=== PATIENT | female | born 1990 | race Caucasian/White ===

== ENCOUNTER 2023-12-05 05:38 | Inpatient (IN) ==
--- NOTE | 2023-11-26 13:01 | Anesthesiology Consultation ---
Date of Service November 26, 2023 Assessment & Plan (1) Encounter for pre-operative examination: Infectious disease screening: Per assessment on 11/26/23: No known infectious disease contacts or current infectious disease symptoms. No noted recent Covid positive test result. Chart Review Chart Review: clerk entry level initiated History Surgery Operation Date: 12/05/23 07:30 Proposed Procedures p Section (Delivery of Baby Through Abdominal Incision) in - Kanwal Bhardwaj MD Height/Weight Height: 5 ft 1 in Weight: 104.326 kg Allergies Allergy/AdvReac Type Severity Reaction Status Date / Time Penicillins Allergy Intermediate Hives Verified 11/26/23 12:09 Medications Home Medications Medication Instructions Recorded Confirmed Last Taken 1 tab PO QPM 11/26/23 11/26/23 Unknown albuterol sulfate 90 mcg/actuation 1 inh inhalation QID PRN sob 11/26/23 11/26/23 Unknown aerosol inhaler budesonide-formoterol HFA 80 1 inh inhalation BID PRN sob 11/26/23 11/26/23 Unknown mcg-4.5 mcg/actuation aerosol inhaler (Symbicort) cholecalciferol (vitamin D3) 25 25 mcg PO QPM 11/26/23 11/26/23 Unknown mcg (1,000 unit) capsule (Vitamin D3) collagen 1 dose PO QPM 11/26/23 11/26/23 Unknown fexofenadine 60 mg tablet 60 mg PO QPM 11/26/23 11/26/23 Unknown folic acid 1 mg tablet 1 mg PO QPM 11/26/23 11/26/23 Unknown insulin glargine 100 unit/mL 6 unit subcut PM 11/26/23 11/26/23 Unknown subcutaneous solution (Lantus U-100 Insulin) insulin lispro 100 unit/mL 4 unit subcut QAM 11/26/23 11/26/23 Unknown subcutaneous pen magnesium 200 mg tablet 200 mg PO QPM 11/26/23 11/26/23 Unknown pantoprazole 20 mg tablet,delayed 20 mg PO QAM 11/26/23 11/26/23 Unknown release (Protonix) sertraline 25 mg tablet (Zoloft) 25 mg PO QPM 11/26/23 11/26/23 Unknown Past Medical History Medical History Acid reflux Asthma 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 Depression with anxiety Endometriosis GERD (gastroesophageal reflux disease) Gestational diabetes History of migraine IBS (irritable bowel syndrome) MTHFR gene mutation Narcolepsy Seasonal allergies Spasm of back muscles Past Family History Family History Mother Diabetes Denies family history of Ovarian cancer Breast cancer Colorectal cancer Past Surgical History Surgical History S/P appendectomy S/P section S/P cholecystectomy S/P colonoscopy S/P laparoscopy S/P tonsillectomy and adenoidectomy S/P wisdom tooth extraction Social History Smoking Status: Former smoker Do You Dip or Chew Tobacco: No Smoking End Date: 2019 Hx Alcohol Use: No Hx Substance Use: No substance use type: does not use
[2023-12-05] MEDS: LACTATED RINGER'S 1,000 ML IV SCH (06:00)
[2023-12-05 06:25] LABS: Basophils # (auto) 0.04 K/uL (0.00-0.20); Basophils % (auto) 0.3 %; Eosinophils # (auto) 0.13 K/uL (0.00-0.50); Eosinophils % (auto) 1.1 %; Hematocrit (blood only) 37.2 % (37.0-47.0); Hemoglobin 12.1 g/dl (12.0-16.0); Immature Granulocytes # (auto) 0.06 K/uL (0.01-0.20); Immature Granulocytes % (auto) 0.5 %; Lymphocytes # (auto) 2.66 K/uL (1.20-3.40); Lymphocytes % (auto) 22.4 %; Mean Corpuscular Hemoglobin 29.2 pg (25.0-34.0); Mean Corpuscular Hgb Conc 32.5 g/dL (32.0-36.0); Mean Corpuscular Volume 89.6 fL (80.0-100.0); Mean Platelet Volume 11.3 fL (9.4-12.4); Monocytes # (auto) 0.76 K/uL (0.11-0.59); Monocytes % (auto) 6.4 %; Neutrophils # (auto) 8.23 K/uL (1.40-6.50); Neutrophils % (auto) 69.3 %; Platelet Count 205 K/uL (130-400); RDW Coefficient of Variation 14.8 % (11.5-14.5); RDW Standard Deviation 47.8 fL (36.4-46.3); Red Blood Count 4.15 M/uL (4.20-5.40); White Blood Count 11.88 K/ul (4.8-10.8)
[2023-12-05] MEDS ORDERED: SODIUM CHLORIDE 0.9% 250 ML IV PRN (06:32)
[2023-12-05] MEDS ORDERED: fentaNYL citrate PF 100 MCG/2 ML VIAL ONE (06:42)
[2023-12-05] MEDS ORDERED: OXYTOCIN 10 UNITS/ML VIAL ONE (06:42)
[2023-12-05] MEDS ORDERED: MoRPHine SULFATE PF 1 MG/ML 10 ML AMP/VIAL ONE (06:42)
[2023-12-05] MEDS ORDERED: ONDANSETRON INJ 2 MG/ML 2 ML VIAL ONE (06:42)
[2023-12-05] MEDS ORDERED: PHENYLEPHRINE 100MCG/ML 10ML SYR IV ONE (06:42)
--- NOTE | 2023-12-05 07:16 | History & Physical Bridge Note ---
Date of Service December 05, 2023 History & Physical Bridge Note I have examined the patient, reviewed the History & Physical and in the interval since the performance of the History & Physical I have noted the following changes of clinical significance: no changes noted
[2023-12-05] MEDS: CITRIC ACID/SODIUM CITRATE 15 ML UDC PO SCH (07:31)
[2023-12-05] MEDS: ceFAZolin 2000MG 2,000 MG/15 ML SYR IV SCH (07:31)
[2023-12-05] MEDS ORDERED: MoRPHine SULFATE PF 1 MG/ML 10 ML AMP/VIAL INT SPINAL ONE (08:02)
[2023-12-05] MEDS ORDERED: LACTATED RINGER'S 500 ML IV PRN (08:02)
[2023-12-05] MEDS ORDERED: NALOXONE HCL 0.08 MG in SYRINGE 1.8 ML IV PRN (08:02)
[2023-12-05] MEDS ORDERED: NALBUPHINE HCL 5 MG in SYRINGE 0 ML IV PRN (08:02)
[2023-12-05] MEDS ORDERED: NALOXONE HCL 0.4 MG/1 ML VIAL/CARP IV PRN (08:02)
[2023-12-05] MEDS ORDERED: ePHEDrine sulfate 50 MG/ML AMP IV PRN (08:02)
[2023-12-05] MEDS ORDERED: ONDANSETRON INJ 2 MG/ML 2 ML VIAL IV PRN (08:02)
[2023-12-05] MEDS ORDERED: HYDROmorphone INJ 0.5 MG/0.5 ML SYR IV PRN (08:02)
[2023-12-05] MEDS ORDERED: NALOXONE HCL 1 MG in SODIUM CHLORIDE 0.9% 1,000 ML IV PRN (08:02)
[2023-12-05] MEDS ORDERED: PROMETHAZINE HCL 6.25 MG in SODIUM CHLORIDE 0.9% 50 ML IV PRN (08:02)
[2023-12-05] MEDS ORDERED: NO NARCOTICS OR SEDATIVES SCH (08:15)
[2023-12-05] MEDS ORDERED: SODIUM CHLORIDE 0.9% 1,000 ML IV SCH (08:15)
[2023-12-05] MEDS ORDERED: DC INTRASPINAL MORPHINE SCH (08:15)
--- NOTE | 2023-12-05 08:58 | Operative Report ---
PG Post Operative Report Pre & Post Diagnosis Operation Date: 12/05/23 07:30 Pre-Op Diagnosis: Previous C/S I identified the patient and participated in the time-out.: Yes Procedure Operation Date: 12/05/23 07:30 Actual Procedures Repeat Low Transverse Section Surgeon Kanwal Bhardwaj MD Entry Level Sales Associate Eliud Pope MD Estimated Blood Loss 500 Findings Consistent with Post-Op Diagnosis Specimens cord blood, placenta Anesthesia Type Spinal Complications none Disposition Accompanied Patient To Recovery: Yes Disposition: L&D Description of Procedure The patient was placed operating table in the supine position with a leftward tilt. She was prepped and draped in standard sterile fashion. The anesthetic was tested and found to be adequate. A time-out was held, identifying correct patient, procedure, positioning and preoperative antibiotics. There were no concerns. A Pfannenstiel skin incision was made with a knife and taken down to the underlying layer of fascia. The fascia was incised in the midline with the knife and taken out laterally with scissors. The superior edge of the fascial incision was grasped, elevated and dissected off the underlying rectus both superiorly and inferiorly. The muscles were bluntly in the midline. The peritoneum was entered bluntly. The incision was then stretched. The bladder retractor was placed. The vesicouterine peritoneum was identified, entered with scissors and taken out laterally with scissors. The bladder flap was created digitally. Lew retractor was placed. A hysterotomy incision was created transversely in the lower uterine segment, final entry being accomplished in a blunt manner with the bus and rail operator's fingers. Clear amniotic fluid was encountered. The bus and rail operator's hand was used to elevate the head to the hysterotomy. The head was delivered using mild fundal pressure, a Kiwi Cup vacuum, and the shoulders and body followed without difficulty. The cord was clamped and cut and the infant was then handed off to the awaiting allied health teacher. Cord blood was obtained. The placenta was Manually extracted. The uterus was cleared of all clot and debris with moistened laparotomy sponges. The hysterotomy incision was repaired in two layers, the first in a running locked layer, the second in an imbricating layer. The ovaries and tubes were not well seen due to uterus remaining in- situ. The gutters were cleared of clot and debris. A final inspection of the hysterotomy revealed good hemostasis. The rectus muscles were allowed to reapproximate naturally. The fascia was then reapproximated with 1 Vicryl in a running nonlocked manner. The fascia was examined and found to be free of defect following closure. The subcutaneous tissue was copiously irrigated and reapproximated with 0-chromic, then the skin edges were closed with 4-0 monocryl in a subcuticular fashion. A dermabond dressing was applied. The delacruz was found to be draining clear yellow urine at completion of the procedure. I attest to the content of the Intraoperative Record and any orders documented therein. Any exceptions are noted below. I attest to the content of the Intraoperative Record and any orders documented therein. Any exceptions are noted below.
[2023-12-05] MEDS: KETOROLAC 30 MG/ML VIAL IV PRN (10:40)
[2023-12-05] MEDS: diphenhydrAMINE 50 MG/ML VIAL IV PRN (10:46)
--- NOTE | 2023-12-05 10:49 | Anesthesiology Progress Note ---
Date of Service December 05, 2023 Anesthesia Post Procedure Vital Signs Vital Signs: Temp Pulse Resp BP Pulse Ox O2 Del Method 12/05/23 10:46 77 98 12/05/23 10:41 71 99 12/05/23 10:36 81 98 12/05/23 10:33 74 93 12/05/23 10:31 85 99 12/05/23 10:29 72 143/60 H 12/05/23 10:26 81 99 12/05/23 10:21 84 96 12/05/23 10:16 83 99 12/05/23 10:11 72 99 12/05/23 10:06 86 99 12/05/23 10:01 84 99 12/05/23 09:58 88 114/62 12/05/23 09:56 71 117/53 L 95 12/05/23 09:51 74 100 12/05/23 09:49 79 94 12/05/23 09:46 83 121/70 98 12/05/23 09:45 36.6 C 74 16 100 12/05/23 09:41 83 100 12/05/23 09:40 88 94 12/05/23 09:36 83 117/59 L 99 12/05/23 09:35 36.6 C 83 16 121/70 98 12/05/23 09:31 87 100 12/05/23 09:26 100 12/05/23 09:26 71 12/05/23 09:26 75 114/57 L 12/05/23 09:25 36.5 C 83 18 100 12/05/23 09:21 84 98 12/05/23 09:17 83 109/54 L 12/05/23 09:16 88 99 12/05/23 09:15 36.5 C 88 16 94 12/05/23 09:12 83 108/53 L 12/05/23 09:11 77 100 12/05/23 09:09 76 104/46 L 12/05/23 09:06 94 H 100 12/05/23 09:05 36.6 C 83 16 117/59 L 99 12/05/23 09:05 99 H 92 12/05/23 09:01 103 H 99 12/05/23 08:56 94 H 100 12/05/23 08:55 36.7 C 18 12/05/23 08:52 78 102/50 L 12/05/23 08:51 88 100 12/05/23 07:29 Room Air 12/05/23 07:18 76 127/60 12/05/23 07:11 36.6 C 18 12/05/23 06:03 91 H 129/66 12/05/23 05:56 36.7 C 20 Pain Intensity Lower Abdomen: Pain Intensity: 1 Transfer of Care Handoff Completed per policy Notes Mental Status: alert / awake / arousable and participated in evaluation Patient Amnestic to Procedure: No Nausea / Vomiting: adequately controlled Pain: adequately controlled Airway Patency, RR, SpO2: stable & adequate BP & HR: stable & adequate Hydration State: stable & adequate Neuraxial Anesthesia: was administered and sensory block is resolving Anesthetic Complications: no major complications apparent and Pt Satisfied with anesthetic care
[2023-12-05] MEDS ORDERED: DIPHTHER/TETAN/PERTUS Vaccine (Tdap, Adol/Adult) 0.5mL IM ONE (10:57)
[2023-12-05] MEDS ORDERED: BENZOCAINE 20% SPRY 85 APPLN/85 GM CAN EXT PRN (10:57)
[2023-12-05] MEDS ORDERED: LACTATED RINGER'S 1,000 ML IV SCH (10:57)
[2023-12-05] MEDS ORDERED: HYDROCORTISONE ACETATE 25 MG SUPP PR PRN (10:57)
[2023-12-05] MEDS ORDERED: ALBUTEROL HFA 8 GM INHALER INH PRN (10:57)
[2023-12-05] MEDS ORDERED: FLUTICASONE/VILANTEROL 100/25MCG 14 PUFFS/INHALER INH PRN (10:57)
[2023-12-05] MEDS: OXYTOCIN 20 UNITS/LR 1,002 ML IV SCH (11:25)
[2023-12-05] MEDS: SIMETHICONE 80 MG CHEW PO SCH (18:02)
[2023-12-05] MEDS: PANTOprazole 40 MG TAB PO SCH (18:05)
[2023-12-05] MEDS ORDERED: NON-FORMULARY MEDICATION (Prenatal 1 TAB) PO SCH (21:00)
[2023-12-05] MEDS: DOCUSATE SODIUM 100 MG CAP PO SCH (21:24)
[2023-12-05] MEDS: FEXOFENADINE 60 MG TAB PO SCH (21:25)
[2023-12-05] MEDS: SERTRALINE HCL 50 MG TABLET PO SCH (21:25)
[2023-12-05] MEDS: FOLIC ACID 1 MG TAB PO SCH (21:25)
[2023-12-06] MEDS ORDERED: KETOROLAC 30 MG/ML VIAL IV PRN (02:03)
[2023-12-06] MEDS ORDERED: MEPERIDINE HCL 50 MG/ML CARP IV PRN (02:03)
[2023-12-06] MEDS ORDERED: ZOLPIDEM TARTRATE 5 MG TAB PO PRN (02:03)
[2023-12-06] MEDS ORDERED: diphenhydrAMINE 50 MG/ML VIAL IV PRN (02:03)
[2023-12-06] MEDS ORDERED: diphenhydrAMINE Capsule 25 MG CAP PO PRN (02:03)
[2023-12-06] MEDS ORDERED: ONDANSETRON INJ 2 MG/ML 2 ML VIAL IV PRN (02:03)
[2023-12-06 06:56] LABS: Basophils # (auto) 0.03 K/uL (0.00-0.20); Basophils % (auto) 0.3 %; Eosinophils # (auto) 0.22 K/uL (0.00-0.50); Eosinophils % (auto) 1.9 %; Hematocrit (blood only) 32.9 % (37.0-47.0); Hemoglobin 10.5 g/dl (12.0-16.0); Immature Granulocytes # (auto) 0.05 K/uL (0.01-0.20); Immature Granulocytes % (auto) 0.4 %; Lymphocytes # (auto) 2.17 K/uL (1.20-3.40); Lymphocytes % (auto) 19.2 %; Mean Corpuscular Hemoglobin 28.7 pg (25.0-34.0); Mean Corpuscular Hgb Conc 31.9 g/dL (32.0-36.0); Mean Corpuscular Volume 89.9 fL (80.0-100.0); Mean Platelet Volume 11.2 fL (9.4-12.4); Monocytes # (auto) 0.75 K/uL (0.11-0.59); Monocytes % (auto) 6.6 %; Neutrophils # (auto) 8.11 K/uL (1.40-6.50); Neutrophils % (auto) 71.6 %; Platelet Count 153 K/uL (130-400); RDW Coefficient of Variation 14.6 % (11.5-14.5); RDW Standard Deviation 47.7 fL (36.4-46.3); Red Blood Count 3.66 M/uL (4.20-5.40); White Blood Count 11.33 K/ul (4.8-10.8)
--- NOTE | 2023-12-06 08:32 | Obstetrical Progress Note ---
Date of Service <Zora Pope MD - Last Filed: 12/06/23 08:32> December 06, 2023 Assessment & Plan <Zora Pope MD - Last Filed: 12/06/23 08:32> (1) Encounter for assessment: Plan Patient with the above mentioned history and findings was evaluated at bedside and found awake, alert, oriented in all spheres, afebrile, and in no acute distress. Vital signs showed no fever and blood pressures remained stable. Her blood type is AB positive and today's hemoglobin is adequate at 10.5 g/dL. Serologies are negative for GBS and patient is Rubella immune. Overall, patient is doing well clinically. Therefore, will encourage ambulation as tolerated and will resume regular diet. Indwelling Barth will be removed. Continue routine pp course. All questions were answered. <Rafa Howard MD - Last Filed: 12/06/23 08:34> (1) Encounter for assessment: Subjective <Zora Pope MD - Last Filed: 12/06/23 08:32> Kaylen is a 33 y/o female who is POD #1 following rLTCS at 39+ weeks. Constitutional: no fever, no chills or no sweats Denies shortness of breath or difficulty breathing. Cardiovascular: no chest pain or no palpitations Breast: no breast pain Genitourinary (female): no dysuria Neurologic: no headache(s) Denies changes in vision. Results & Data <Zora Pope MD - Last Filed: 12/06/23 08:32> Vital Signs (Past 12 Hours) Vital Signs Temp Pulse Resp BP Pulse Ox O2 Del Method 12/06/23 04:15 36.8 C 94 H 18 130/71 98 Room Air 12/06/23 02:00 18 97 12/06/23 01:30 20 99 12/06/23 00:35 18 97 12/05/23 23:10 20 98 12/05/23 23:10 36.8 C 103 H 18 106/66 98 Room Air 12/05/23 22:39 20 98 12/05/23 21:30 18 98 12/05/23 21:30 36.8 C 105 H 18 116/72 98 Room Air Supervising Physician <Rafa Howard MD - Last Filed: 12/06/23 08:34> Co-Signing Physician Notes Patient seen with resident and agree with the above findings and plan. Routine care
[2023-12-06] MEDS: FERROUS SULFATE 325 MG TAB PO SCH (08:56)
[2023-12-06] MEDS: oxyCODONE/ACETAMINOPHEN 5mg/325mg TAB PO PRN (08:56)
[2023-12-06] MEDS: PRENATAL VITAMIN 1 TAB PO SCH (08:56)
[2023-12-06] MEDS: IBUPROFEN 600 MG TAB PO PRN (08:57)
[2023-12-06] MEDS: MAGNESIUM HYDROXIDE SUSP 30 ML UDC PO PRN (15:44)
[2023-12-06] MEDS: SENNA 8.6 MG TAB PO PRN (15:45)
[2023-12-06] MEDS ORDERED: SODIUM CHLORIDE 0.65% NA SOLN 45 ML (OCEAN) ONE (17:05)
[2023-12-06] MEDS ORDERED: SODIUM CHLORIDE 0.65% NA SOLN 45 ML (OCEAN) PRN (17:14)
[2023-12-06] MEDS ORDERED: Nursing to Pharmacy Communication SCH (17:15)
[2023-12-06] MEDS: bisacodyL 5 MG TABEC PO SCH (19:38)
--- NOTE | 2023-12-07 06:50 | Obstetrical Progress Note ---
Date of Service December 07, 2023 Assessment & Plan (1) Encounter for assessment: Recovering normally. Wants to stay until tomorrow. Having some sinus symptoms, had URI since last weekend but bothered now. Discussed pros/cons of abx, patient declines for now. Subjective Ambulation: ambulating normally Voiding: no voiding problems Passing Gas:: Yes Diet Tolerance:: regular diet Lochia:: Small Feeding Type:: breast feeding Physical Exam Constitutional WD/WN, vitals as above Eyes PERRL, conjunctivae normal, anicteric sclerae Neck normal visual inspection Respiratory normal respiratory effort and able to speak in complete sentences; no respiratory distress and no labored breathing Cardiovascular Rate/Rhythm: regular rate and regular rhythm Extremities: no edema Chest (Breasts) Chest: normal inspection of chest Gastrointestinal (Abdomen) Inspection/Auscultation: abdomen normal to inspection Soft, postgravid Psychiatric A+Ox3, euthymic affect Genitourinary OB Exam Abdomen: + fundal height Fundus: + firm and + relation to umbilicus (fundus just below umbilicus); not tender Results & Data Vital Signs (Past 12 Hours) Vital Signs Temp Pulse Resp BP Pulse Ox O2 Del Method 12/06/23 23:45 97.7 F 81 20 109/72 98 Room Air 12/06/23 19:25 98.2 F 102 H 18 123/65 98 Room Air
[2023-12-07 06:52] LABS: Hematocrit (blood only) 33.2 % (37.0-47.0); Hemoglobin 10.7 g/dl (12.0-16.0)
[2023-12-07] MEDS ORDERED: bisacodyL 10 MG SUPP PR PRN (08:34)
--- NOTE | 2023-12-08 04:41 | Obstetrical Progress Note ---
Date of Service December 08, 2023 Assessment & Plan (1) Encounter for assessment: Plan 33 y/o POD#3 Eating well, voiding well, ambulating well Vitals reviewed, WNL Pain well controlled with percocet and motrin Routine post op care - OOB, ambulation, diet progression as tolerated Will have 6 week follow up with Dr. Bhardwaj Subjective Ambulation: ambulating normally Voiding: no voiding problems Passing Gas:: Yes Diet Tolerance:: regular diet Lochia:: Small Feeding Type:: breast feeding Pain well controlled with scheduled percocet and motrin Review of Systems -Denies fever or chills -Denies dyspnea, chest pain, or palpitations -Denies breast pain -Denies dysuria -Notes mild MATTHEWS but denies sustained changes in vision Physical Exam General: Alert and oriented. No acute distress Cardiac: Regular rate and rhythm, no murmurs appreciated Respiratory: Lungs clear to auscultation bilaterally, No increased work of breathing Abdominal: Soft, non-tender, non-distended. Bowel sounds present. Uterus: Uterine fundus firm, palpable below umbilicus Extremities: No lower extremity edema, calves non-tender bilaterally Results & Data Vital Signs (Past 12 Hours) Vital Signs Temp Pulse Resp BP 12/08/23 00:06 37.0 C 99 H 18 115/72 12/07/23 19:57 36.9 C 89 18 124/73
--- NOTE | 2023-12-11 11:00 | Discharge Summary ---
Date of Service December 11, 2023 Discharge Data Consultations 12/05/23 05:38 Consult Anesthesiology Stat Procedures Performed Operation Date: 12/05/23 07:30 Actual Procedures p Section in LD with result of Live Female child at 0813 - Kanwal Bhardwaj MD Hospital Course (1) Encounter for assessment: Plan 33 y/o POD#3 Eating well, voiding well, ambulating well Vitals reviewed, WNL Pain well controlled with percocet and motrin Routine post op care - OOB, ambulation, diet progression as tolerated Will have 6 week follow up with Dr. Bhardwaj Coding Level of Care Code None Diagnoses Encounter for assessment Z39.2
== END 2023-12-08 14:45 | disposition home or self-care (01) | DRG 788 ==
LOC: 4S1 05:38 → EDSTATUS 07:30 → 4E2 11:31
DX: Z79.899 Other long term (current) drug therapy; Z79.4 Long term (current) use of insulin; O34.211 Maternal care for low transverse scar from previous cesarean delivery; Z88.0 Allergy status to penicillin; Z87.891 Personal history of nicotine dependence

== ENCOUNTER 2025-06-20 05:24 | Inpatient (IN) ==
--- NOTE | 2025-06-16 10:28 | Anesthesiology Consultation ---
Date of Service June 16, 2025 Assessment & Plan (1) Encounter for pre-operative examination: - Per environmental specialist on 06/16/25: No known infectious disease contacts, current infectious disease symptoms in past 10 days or COVID positive test result in the past 30 days. Chart Review Chart Review: data entry initiated History Surgery Operation Date: 06/20/25 07:30 Proposed Procedures p Section (Delivery of Baby Through Abdominal Incision) - Kanwal Bhardwaj MD Height/Weight Height: 5 ft 1 in Weight: 97.522 kg Allergies Allergy/AdvReac Type Severity Reaction Status Date / Time Penicillins Allergy Unknown Hives Verified 06/16/25 09:43 Medications Home Medications Medication Instructions Recorded Confirmed Last Taken albuterol sulfate 90 mcg/actuation 1 inh inhalation UD PRN excercise 11/26/23 06/16/25 Unknown aerosol inhaler induced asthma budesonide-formoterol HFA 80 1 inh inhalation BID PRN illness 11/26/23 06/16/25 Unknown mcg-4.5 mcg/actuation aerosol inhaler (Symbicort) cholecalciferol (vitamin D3) 25 25 mcg PO QPM 11/26/23 06/16/25 Unknown mcg (1,000 unit) capsule (Vitamin D3) fexofenadine 60 mg tablet 0 mg PO HS 11/26/23 06/16/25 08/03/24 magnesium 200 mg tablet 200 mg PO QPM 11/26/23 06/16/25 Unknown pantoprazole 20 mg tablet,delayed 20 mg PO QAM 11/26/23 06/16/25 Unknown release (Protonix) sertraline 25 mg tablet (Zoloft) 25 mg PO QPM 11/26/23 06/16/25 08/03/24 vit no.95-ferrous 1 tab PO DAILY 07/29/24 06/16/25 Unknown fumarate 28 mg-folic acid 800 mcg tablet () acetone (urine) test (Ketone Urine #50 ea 12/24/24 06/08/25 Unknown Test strips) ondansetron 4 mg disintegrating 4 mg PO Q6H PRN nausea and 02/07/25 06/16/25 Unknown tablet vomiting #20 tabs Accu-Chek Guide test strips (blood #400 ea 04/11/25 06/08/25 Unknown sugar diagnostic) Accu-Chek Softclix Lancets #400 ea 04/11/25 06/08/25 Unknown (lancets) blood-glucose meter (Accu-Chek #1 ea 04/11/25 06/08/25 Unknown Guide Glucose Meter) cyclobenzaprine 5 mg tablet 5 mg PO TID PRN muscle spasm #15 05/30/25 06/16/25 Unknown tabs acetaminophen 325 mg tablet 325 mg PO QID PRN neck/shoulder 06/16/25 06/16/25 Unknown pain Past Medical History Medical History Acid reflux controlled Anxiety and depression at current controlled with med and counseling. 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 History of COVID-19 (2020) resolved IBS (irritable bowel syndrome) Migraines on occ/not as many recently/has no meds for. MTHFR gene mutation hx [facility] genealogist visit - per pt she was told she doesn't have the type of gene that is a concerning one. Narcolepsy Neck pain on left side depression hx of- unknown if official dx. At current controlled with med and counseling. Seasonal allergies Spasm of back muscles sometimes Past Family History Family History Mother Diabetes Uncle Family history of pulmonary embolism Father Prostate cancer Other MTHFR gene mutation Denies family history of Ovarian cancer Breast cancer Colorectal cancer Past Surgical History Surgical History History of x2: most recent 12/05/23 S/P appendectomy S/P cholecystectomy S/P colonoscopy S/P laparoscopy S/P medial patellofemoral ligament reconstruction (08/04/24) left S/P tonsillectomy and adenoidectomy S/P wisdom tooth extraction Social History Smoking Status: Former smoker Do You Dip or Chew Tobacco: No Smoking End Date: quit 07/2020 Hx Alcohol Use: No Hx Substance Use: No substance use type: does not use
[2025-06-20 05:58] LABS: Hematocrit (blood only) 38.9 % (37.0-47.0); Hemoglobin 12.3 g/dl (12.0-16.0); Mean Corpuscular Hemoglobin 27.6 pg (25.0-34.0); Mean Corpuscular Volume 87.2 fL (80.0-100.0); Platelet Count 211 K/uL (130-400); RDW Standard Deviation 45.5 fL (36.4-46.3); Red Blood Count 4.46 M/uL (4.20-5.40); White Blood Count 10.72 K/ul (4.8-10.8)
[2025-06-20] MEDS: ACETAMINOPHEN 500 MG TAB PO SCH (06:09)
[2025-06-20] MEDS: LACTATED RINGER'S 1,000 ML IV SCH ×2 (06:09→10:23)
[2025-06-20] MEDS ORDERED: SODIUM CHLORIDE 0.9% 100 ML IV PRN (06:26)
[2025-06-20] MEDS ORDERED: LACTATED RINGER'S 500 ML IV PRN (07:21)
[2025-06-20] MEDS ORDERED: NALOXONE HCL 0.4 MG/1 ML VIAL/CARP IV PRN (07:21)
[2025-06-20] MEDS ORDERED: ONDANSETRON INJ 2 MG/ML 2 ML VIAL IV PRN (07:21)
[2025-06-20] MEDS ORDERED: NALOXONE HCL 0.08 MG in SYRINGE 1.8 ML IV PRN (07:21)
[2025-06-20] MEDS ORDERED: diphenhydrAMINE 50 MG/ML VIAL IV PRN (07:21)
[2025-06-20] MEDS ORDERED: NALOXONE HCL 1 MG in SODIUM CHLORIDE 0.9% 1,000 ML IV PRN (07:21)
[2025-06-20] MEDS ORDERED: HYDROmorphone INJ 0.5 MG/0.5 ML SYR IV PRN (07:21)
[2025-06-20] MEDS ORDERED: PROMETHAZINE 6.25 MG/50.25 ML BAG IV PRN (07:21)
--- NOTE | 2025-06-20 07:23 | History & Physical Bridge Note ---
Date of Service June 20, 2025 History & Physical Bridge Note I have examined the patient, reviewed the History & Physical and in the interval since the performance of the History & Physical I have noted the following changes of clinical significance: no changes noted
[2025-06-20] MEDS: CLINDAMYCIN/D5W 900 MG/50 ML BAG IV SCH (07:26)
[2025-06-20] MEDS ORDERED: MoRPHine SULFATE PF 1 MG/ML 10 ML AMP/VIAL ONE (07:28)
[2025-06-20] MEDS ORDERED: NO NARCOTICS OR SEDATIVES SCH (07:30)
[2025-06-20] MEDS ORDERED: DC INTRASPINAL MORPHINE SCH (07:30)
[2025-06-20] MEDS ORDERED: PHENYLEPHRINE HCL 25 MG/250 ML NSS IV ONE (08:05)
[2025-06-20] MEDS ORDERED: ONDANSETRON INJ 2 MG/ML 2 ML VIAL ONE (08:05)
[2025-06-20] MEDS ORDERED: PHENYLEPHRINE 100MCG/ML 5ML SYR ONE (08:05)
[2025-06-20] MEDS ORDERED: OXYTOCIN 10 UNITS/ML VIAL ONE (08:05)
--- NOTE | 2025-06-20 08:20 | Operative Report ---
PG Post Operative Report Pre & Post Diagnosis Operation Date: 06/20/25 07:30 [facility]UP @ Term History of 2x Section I identified the patient and participated in the time-out.: Yes Procedure Operation Date: 06/20/25 07:30 Repeat Low Transverse section Surgeon Kanwal Bhardwaj MD Sausage Cooker Yoko Estimated Blood Loss 500 Findings Consistent with Post-Op Diagnosis Specimens Placenta, cord blood Anesthesia Type Spinal Complications none Disposition Accompanied Patient To Recovery: Yes Disposition: L&D Description of Procedure The patient was placed operating table in the supine position with a leftward tilt. She was prepped and draped in standard sterile fashion. The anesthetic was tested and found to be adequate. A time-out was held, identifying correct patient, procedure, positioning and preoperative antibiotics. There were no concerns. A Pfannenstiel skin incision was made with a knife and taken down to the underlying layer of fascia. The fascia was incised in the midline with the knife and taken out laterally with scissors. The superior edge of the fascial incision was grasped, elevated and dissected off the underlying rectus both superiorly and inferiorly. The muscles were bluntly in the midline. The peritoneum was entered bluntly. The incision was then stretched. The bladder retractor was placed. The vesicouterine peritoneum was identified, entered with scissors and taken out laterally with scissors. The bladder flap was created digitally. A hysterotomy incision was created transversely in the lower uterine segment, final entry being accomplished in a blunt manner with the weigh tank operator's fingers. Clear amniotic fluid was encountered. The weigh tank operator's hand was used to elevate the head to the hysterotomy. The head was delivered using mild fundal pressure, and the shoulders and body followed without difficulty. The cord was clamped and cut and the infant was then handed off to the awaiting supervisor sound technician. Cord blood was obtained. The placenta was Manually extracted. The uterus was exteriorized and cleared of all clot and debris with moistened laparotomy sponges. The hysterotomy incision was repaired in two layers, the first in a running locked layer, the second in an imbricating layer. The ovaries and tubes were seen to be normal bilaterally. The uterus was gently replaced in the abdomen, and the gutters were cleared of clot and debris. A final inspection of the hysterotomy revealed good hemostasis. The rectus muscles were allowed to reapproximate naturally. The fascia was then reapproximated with 1 Vicryl in a running nonlocked manner. The fascia was examined and found to be free of defect following closure. The subcutaneous tissue was copiously irrigated and reapproximated with 0-chromic, then the skin edges were closed with 4-0 monocryl in a subcuticular fashion. A dermabond dressing was applied. The delacruz was found to be draining clear yellow urine at completion of the procedure. I attest to the content of the Intraoperative Record and any orders documented therein. Any exceptions are noted below. I attest to the content of the Intraoperative Record and any orders documented therein. Any exceptions are noted below. OB Procedure Charges [id number]
--- NOTE | 2025-06-20 08:34 | Anesthesiology Progress Note ---
Date of Service June 20, 2025 Anesthesia Post Procedure Vital Signs Vital Signs: Temp Pulse Resp BP Pulse Ox 06/20/25 08:32 88 99 06/20/25 08:27 89 98 06/20/25 08:24 89 101/54 L 06/20/25 07:01 82 133/75 06/20/25 05:46 81 125/64 06/20/25 05:42 36.6 C 81 18 125/64 Transfer of Care Handoff Completed per policy Notes Mental Status: alert / awake / arousable Nausea / Vomiting: adequately controlled Pain: adequately controlled Airway Patency, RR, SpO2: stable & adequate BP & HR: stable & adequate Hydration State: stable & adequate Neuraxial Anesthesia: was administered and sensory block is resolving Anesthetic Complications: no major complications apparent and Pt Satisfied with anesthetic care
[2025-06-20] MEDS: CITRIC ACID/SODIUM CITRATE 15 ML UDC PO SCH (08:48)
[2025-06-20] MEDS: SODIUM CHLORIDE 0.9% 1,000 ML IV SCH (08:49)
[2025-06-20] MEDS: MoRPHine SULFATE PF 1 MG/ML 10 ML AMP/VIAL INT SPINAL ONE (08:49)
[2025-06-20] MEDS: KETOROLAC 30 MG/ML VIAL ONE (08:49)
[2025-06-20] MEDS ORDERED: CALCIUM CARBONATE 500 MG CHEWABLE TAB PO PRN (09:00)
[2025-06-20] MEDS ORDERED: OXYTOCIN 20 UNITS/LR 1,002 ML IV SCH (09:00)
[2025-06-20] MEDS ORDERED: HYDROCORTISONE ACETATE 25 MG SUPP PR PRN (09:00)
[2025-06-20] MEDS ORDERED: BENZOCAINE 20% SPRY 85 APPLN/85 GM CAN EXT PRN (09:00)
[2025-06-20] MEDS ORDERED: SENNA 8.6 MG TAB PO PRN (09:00)
[2025-06-20] MEDS: DIPHTHER/TETAN/PERTUS Vaccine (Tdap, Adol/Adult) 0.5mL IM ONE (10:22)
[2025-06-20] MEDS: KETOROLAC 30 MG/ML VIAL IV SCH (10:23)
[2025-06-20] MEDS: MoRPHine SULFATE 4 MG/ML 1 ML CARP\\VIAL IV PRN (11:03)
[2025-06-20] MEDS: NALBUPHINE HCL INJ 10 MG/ML AMP IV PRN (13:36)
[2025-06-20] MEDS: ACETAMINOPHEN 325 MG TAB PO SCH (13:38)
[2025-06-20] MEDS: SIMETHICONE 80 MG CHEW PO SCH (13:38)
[2025-06-20] MEDS: MEPERIDINE HCL 25 MG/ML CARP/VIAL IV PRN (16:27)
[2025-06-20] MEDS: DOCUSATE SODIUM 100 MG CAP PO SCH (20:41)
[2025-06-20] MEDS: CYCLOBENZAPRINE HCL 5 MG TAB PO PRN (21:00)
[2025-06-20] MEDS: SERTRALINE HCL 50 MG TABLET PO SCH (21:00)
[2025-06-21] MEDS ORDERED: HYDROmorphone INJ 0.5 MG/0.5 ML SYR IV PRN (01:21)
[2025-06-21] MEDS ORDERED: diphenhydrAMINE 50 MG/ML VIAL IV PRN (01:21)
[2025-06-21] MEDS ORDERED: PROMETHAZINE 12.5 MG/50.5 ML BAG IV PRN (01:21)
[2025-06-21] MEDS ORDERED: ONDANSETRON INJ 2 MG/ML 2 ML VIAL IV PRN (01:21)
[2025-06-21] MEDS ORDERED: diphenhydrAMINE Capsule 25 MG CAP PO PRN (01:21)
--- NOTE | 2025-06-21 07:34 | Obstetrical Progress Note ---
Date of Service June 21, 2025 Assessment & Plan (1) care and examination: Plan: 35yo post-op day 1 s/p section Fells better today. Vital signs stable Continue post- care Encourage ambulation and Pain controlled Nystatin powder between skin folds Vitals and Hgb stable Admission and Anticipated Discharge Date Admission Date: June 20, 2025 Supervising Physician Co-Signing Physician Notes Patient seen with resident and agree with the above findings plan. Continue routine care Subjective 35yo post-op day 1 s/p section Ambulation: Ambulating normally Voiding: No voiding problems Passing Gas:: Yes Diet Tolerance:: regular diet Lochia:: Small Feeding Type:: Current Pain Level: 6/10 controlled with Tylenol, Ketoralac, Oxycodone prn Resting comfortably this AM in NAD. Denies MATTHEWS, CP, SOB, N/V/D, LE pain/swelling. Physical Exam Physical Exam: General: patient resting comfortably, NAD, non-toxic in appearance, answers questions appropriately Skin: warm, dry, intact Heart: S1/S2 heard, regular, no m/r/g Lungs: equal air entry bilaterally, no rales/rhonchi/wheezes Abd: Normoactive BS, soft, NT/ND, uterine fundus firm below umbilicus, incision clean, dry, and intact Ext: warm, no clubbing/cyanosis or edema, Sharon's neg Neuro: nonfocal, patient AAOx4, speech intact, no facial droop, moving all extremities on command Results & Data Vital Signs (Past 12 Hours) Vital Signs Temp Pulse Pulse Resp BP Pulse Ox O2 Del Method 06/21/25 03:04 36.4 C L 80 16 94/58 L 97 Room Air 06/21/25 01:21 18 95 06/21/25 00:03 18 96 06/20/25 23:00 18 96 06/20/25 23:00 36.7 C 72 18 113/71 96 Room Air 06/20/25 22:06 16 99 06/20/25 21:30 18 97 06/20/25 20:11 18 98 Resident Activity Tracking Resident Involvement: Resident Care Provided Care Provided: OB Delivery
[2025-06-21] MEDS ORDERED: KETOROLAC 30 MG/ML VIAL IV PRN (08:10)
[2025-06-21] MEDS: PRENATAL VITAMIN 1 TAB PO SCH (08:33)
[2025-06-21] MEDS: FERROUS SULFATE 325 MG TAB PO SCH (08:33)
[2025-06-21] MEDS: IBUPROFEN 600 MG TAB PO SCH (08:34)
[2025-06-21 11:16] LABS: Hematocrit (blood only) 33.6 % (37.0-47.0); Hemoglobin 10.8 g/dl (12.0-16.0); Immature Granulocytes # (auto) 0.04 K/uL (0.01-0.20); Immature Granulocytes % (auto) 0.4 %; Mean Corpuscular Hemoglobin 28.1 pg (25.0-34.0); Mean Corpuscular Volume 87.3 fL (80.0-100.0); Platelet Count 169 K/uL (130-400); RDW Standard Deviation 46.5 fL (36.4-46.3); Red Blood Count 3.85 M/uL (4.20-5.40); White Blood Count 10.04 K/ul (4.8-10.8)
--- NOTE | 2025-06-22 03:20 | Obstetrical Progress Note ---
Date of Service June 22, 2025 Assessment & Plan (1) care and examination: POD#2 doing well. Incision CDI, abdomen soft. . Desires to stay until tomorrow. Continue routine /postop care. Subjective Ambulation: ambulating normally Voiding: no voiding problems Diet Tolerance:: regular diet Lochia:: Moderate Review of Systems All systems reviewed & are unremarkable except as noted in HPI & below Physical Exam Incision CDI Constitutional WD/WN, vitals as above no acute distress Respiratory normal respiratory effort Cardiovascular Rate/Rhythm: regular rate and regular rhythm Gastrointestinal (Abdomen) Inspection/Auscultation: abdomen normal to inspection; abdomen not distended Percussion/Palpation: abdomen soft Genitourinary OB Exam Abdomen: + fundal height Fundus: + firm; not tender Results & Data Vital Signs (Past 12 Hours) Vital Signs Temp Pulse Resp BP Pulse Ox O2 Del Method 06/22/25 01:25 36.8 C 99 H 16 117/63 98 Room Air 06/21/25 16:40 36.7 C 92 H 20 111/73 98 Room Air
[2025-06-22 06:15] LABS: Hematocrit (blood only) 32.7 % (37.0-47.0); Hemoglobin 10.7 g/dl (12.0-16.0)
[2025-06-22] MEDS: IBUPROFEN 600 MG TAB PO PRN (07:49)
[2025-06-22] MEDS: MAGNESIUM HYDROXIDE SUSP 30 ML UDC PO PRN (07:49)
[2025-06-22] MEDS: HYDROCORTISONE 1% CRM 30 GM TUBE EXT PRN (16:45)
[2025-06-22] MEDS: ACETAMINOPHEN 325 MG TAB PO PRN (16:45)
[2025-06-22] MEDS: NYSTATIN POWDER 15GM BTL EXT PRN (19:52)
--- NOTE | 2025-06-23 06:35 | Obstetrical Progress Note ---
Date of Service June 23, 2025 Assessment & Plan (1) care and examination: Plan: 35yo post-op day 3 s/p section Vital signs stable Continue post- care Encourage ambulation and Pain controlled Nystatin powder between skin folds Vitals and Hgb stable Plan to d/c, follow up with OB provider in 6 weeks Admission and Anticipated Discharge Date Admission Date: June 20, 2025 Supervising Physician Co-Signing Physician Notes Resident Physician Supervision Note: I interviewed and examined the patient. Discussed with Dr. Mckeon and agree with findings and plan as documented in the note. Any exceptions or clarifications are listed here: [ ] Documented By: Kanwal Bhardwaj MD, FACOG, MSCP Subjective 35yo post-op day 3 s/p section Ambulation: Ambulating normally Voiding: Has some discomfort with release of urine Passing Gas:: Yes Diet Tolerance:: regular diet Lochia:: Small Feeding Type:: Current Pain Level: 7/10 controlled with Tylenol, Ibuprofen, Oxycodone prn Resting comfortably this AM in NAD. Denies MATTHEWS, CP, SOB, N/V/D, LE pain/swelling. Physical Exam Physical Exam: General: patient resting comfortably, NAD, non-toxic in appearance, answers questions appropriately Skin: warm, dry, intact Heart: S1/S2 heard, regular, no m/r/g Lungs: equal air entry bilaterally, no rales/rhonchi/wheezes Abd: Normoactive BS, soft, NT/ND, uterine fundus firm below umbilicus, incision clean, dry, and intact with nystatin powder present Ext: warm, no clubbing/cyanosis, 1+ edema B/L on LE, Sharon's neg Neuro: nonfocal, patient AAOx4, speech intact, no facial droop, moving all extremities on command Results & Data Vital Signs (Past 12 Hours) Vital Signs Temp Pulse Resp BP Pulse Ox O2 Del Method 06/22/25 23:47 36.6 C 99 H 16 114/75 98 Room Air 06/22/25 20:09 36.6 C 99 H 18 116/77 96 Room Air
[2025-06-23 08:09] VITALS: BP 112/70; PULSE 81; RESP 18; TEMP 98.1; O2SAT 99
--- NOTE | 2025-06-24 07:28 | Coding Query ---
CODING QUERY To promote full compliance with coding requirements relating to patient care, provider participation is requested in all cases of pre coder uncertainty. Please assist us with the question(s) below: Coding Question(s): Please specify below, the number of weeks of gestation of the upon admission: ( ) Specified number of weeks of gestation known. Please specify the number of weeks of gestation 3rd trimester ( ) Number of weeks of gestation unknown Physician's Response(s): Thank you Sofy Elizondo Principal Diagnosis: "that condition established after study, to be chiefly responsible for occasioning the admission of the patient to the hospital for care." Co-Existing Principal Diagnosis: "when two or more diagnoses equally meet the criteria for principal diagnosis as determined by the circumstances of admission, diagnostic work up, and/or therapy provided, and the Alphabetic Index, Tabular List, or another coding guideline does not provide sequencing direction, any one of the diagnoses may be sequenced first." "When the physician has documented what appears to be a current diagnosis in the body of the record, but has not included the diagnosis in the final diagnostic statement, the physician should be asked whether the diagnosis should be added." (Source Coding [facility] 2 QTR90. p3-4) ZOE
--- NOTE | 2025-06-24 11:29 | Discharge Summary ---
Date of Service June 24, 2025 Discharge Data Consultations 06/20/25 05:28 Consult Anesthesiology Stat Procedures Performed Operation Date: 06/20/25 07:30 Actual Procedures p Section in Labor and Delivery for live male infant at 0758(Bilateral) - Kanwal Bhardwaj MD Hospital Course (1) care and examination: 35yo post-op day 3 s/p section Vital signs stable Continue post- care Encourage ambulation and Pain controlled Nystatin powder between skin folds Vitals and Hgb stable Plan to d/c, follow up with OB provider in 6 weeks Supervising Physician Co-Signing Physician Notes Resident Physician Supervision Note: I interviewed and examined the patient. Discussed with Dr. Mckeon and agree with findings and plan as documented in the note. Any exceptions or clarifications are listed here: [ ] Documented By: Kanwal Bhardwaj MD, FACOG, MSCP Coding Level of Care Code 34506 IN/OBS DISCH 30 MIN/LESS Diagnoses care and examination Z39.2
== END 2025-06-23 14:00 | disposition home or self-care (01) | DRG 788 ==
LOC: 4S1 05:24 → EDSTATUS 07:30 → 4E2 11:28